=== PATIENT | male | born 1955 | race Caucasian/White ===

== ENCOUNTER → 2018-02-23 | Outpatient (CLI) | payer BC ==
--- NOTE | 2018-02-23 12:15 | US ---
EXAMINATION TYPE: US carotid duplex BILAT DATE OF EXAM: 02/23/2018 COMPARISON: NONE CLINICAL HISTORY: 63-year-old male I20.9 angina Dyspnea R06.09. Dizziness TECHNIQUE: Carotid duplex ultrasound examination. Indirect Doppler criteria was utilized. 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 No elevated velocities, no significant stenosis. IMPRESSION: Technical limitations as above. No hemodynamically significant stenosis appreciated in either interna l carotid artery. Criteria for Assigning % of Stenosis / Diameter reduction (Estimation based on the indirect measurements of the internal carotid artery velocities (ICA PSV). 1. Normal (no stenosis)=ICA PSV < 125 cm/s: ratio < 2.0: ICA EDV<40 cm/s. 2. Less than 50% stenosis=ICA PSV < 125 cm/s: ratio < 2.0: ICA EDV<40 cm/s. 3. 50 to 69% stenosis=ICA PSV of 125 to 230 cm/s: ration 2.0 ? 4.0: ICA EDV 40-100 cm/s. 4. Greater than 70% stenosis to near occlusion= ICA PSV > 230 cm/s: ratio > 4.0: ICA EDV > 100 cm/s. 5. Near occlusion= ICA PSV velocities may be low or undetectable: variable ratio and ICA EDV. 6. Total occlusion=unable to detect flow.
--- NOTE | 2018-02-23 12:44 | ECHOF ---
Referral Reason:I20.9 angina R06.09 dyspnea on exertion MEASUREMENTS -------- HEIGHT: 172.7 cm WEIGHT: 108.9 kg BP: RVIDd: 2.8 cm (< 3.3) IVSd: 1.2 cm (0.6 - 1.1) LVIDd: 4.4 cm (3.9 - 5.3) LVPWd: 1.4 cm (0.6 - 1.1) IVSs: 1.6 cm LVIDs: 2.5 cm LVPWs: 1.5 cm LA Diam: 3.5 cm (2.7 - 3.8) LAESV Index (A-L): 17.21 ml/m Ao Diam: 3.5 cm (2.0 - 3.7) AV Cusp: 2.1 cm (1.5 - 2.6) LA Diam: 3.5 cm (2.7 - 3.8) MV EXCURSION: 15.965 mm (> 18.000) MV EF SLOPE: 78 mm/s (70 - 150) EPSS: 0.6 cm MV E Min: 0.46 m/s MV DecT: 199 ms MV A Min: 0.69 m/s MV E/A Ratio: 0.66 RAP: 5.00 mmHg RVSP: 13.59 mmHg FINDINGS -------- Sinus rhythm. This was a technically adequate study. The left ventricular size is normal. There is moderate concentric left ventricular hypertrophy. O verall left ventricular systolic function is normal with, an EF between 55 - 60 %. The right ventricle is normal in size. The left atrial size is normal. The right atrial size is normal. The aortic valve is trileaflet, and appears structurally normal. No aortic stenosis or regurgitation. Mild mitral annular calcification present. Mild mitral regurgitation is present. Mild tricuspid regurgitation present. There is no evidence of pulmonary hypertension. The right v entricular systolic pressure, as measured by Doppler, is 13.59mmHg. There is no pulmonic regurgitation present. The aortic root size is normal. Echo free space represents a pericardial fat pad. CONCLUSIONS -------- 1. The left ventricular size is normal. 2. There is moderate concentric left ventricular hypertrophy. 3. Overall left ventricular systolic function is normal with, an EF between 55 - 60 %. 4. The right ventricle is normal in size. 5. The left atrial size is normal. 6. The right atrial size is normal. 7. The aortic valve is trileaflet, and appears structurally normal. No aortic stenosis or regurgitati on. 8. Mild mitral annular calcification present. 9. Mild mitral regurgitation is present. 10. Mild tricuspid regurgitation present. 11. There is no evidence of pulmonary hypertension. 12. The right ventricular systolic pressure, as measured by Doppler, is 13.59mmHg. 13. There is no pulmonic regurgitation present. 14. The aortic root size is normal. 15. Echo free space represents a pericardial fat pad. TECHNOLOGY SALES SPECIALIST: Kathy Preciado RDCS
--- NOTE | 2018-02-23 14:09 | EST ---
EXERCISE STRESS DATE OF SERVICE: 02/23/2018 AGE: 63 SEX: M HT: 5' 8" WT: 240 PROTOCOL: Roderick Stress Test STAGE: II DURATION OF EXERCISE: 8:00 HEART RATE REST: 46 BLOOD PRESSURE REST: 128/68 MAXIMUM HEART RATE ACHIEVED: 134 MAXIMUM BLOOD PRESSURE: 164/55 85% MPHR: 133 100% MPHR: 156 METS: 9.7 INDICATIONS: Shortness of breath/dizzy. CLINICAL INFORMATION: STRESS DATA: Pretesting physical examination showed heart rate of 46, pressure is 128/68 mmHg. Baseline EKG showed sinus rhythm. The patient exercised on the treadmill according to Roderick protocol for a total of 8 minutes and achieved 9.7 METS with max heart rate was 134, which is about 85% of maximum predicted heart rate. Maximum blood pressure was 164/55 mmHg. Clinically, the patient did not have any symptoms of chest pain or discomfort during the testing or on the recovery. The EKG did not show any significant ST or T-wave abnormalities concerning for ischemia. CONCLUSION: 1. Good exercise tolerance. 2. No chest discomfort in response. No evidence of chest discomfort in response to exercise. 3. No ischemic ST or T-wave abnormalities in response to exercise as well. MMODL / IJN: [id number] /
== END | disposition home or self-care (01) ==
LOC: RADUSMAIN 07:48
PROVIDERS: ATTEND Family Medicine
DX: I08.1 Rheumatic disorders of both mitral and tricuspid valves (principal); I20.9 Angina pectoris, unspecified
CPT/HCPCS: 93017; 93306; 93880

== ENCOUNTER → 2019-09-08 | Outpatient (CLI) | payer MEDICARE ==
[2019-09-08 09:52] LABS: Basophils % (A) 0 %; Eosinophils # (A) 0.2 k/uL (0-0.7); Eosinophils % (A) 4 %; HCT 47.3 % (39.0-53.0); Lymphocytes # (A) 1.2 k/uL (1.0-4.8); Lymphocytes % (A) 20 %; MCH 32.7 pg (25.0-35.0); MCHC 33.8 g/dL (31.0-37.0); MCV 96.5 fL (80.0-100.0); Mean Platelet Volume 8.8; Monocytes # (A) 0.6 k/uL (0-1.0); Monocytes % (A) 10 %; Neutrophils # (A) 3.7 k/uL (1.3-7.7); Neutrophils % (A) 63 %; Platelet Count 180 k/uL (150-450); RDW 13.7 % (11.5-15.5); WBC 5.8 k/uL (3.8-10.6)
[2019-09-08 10:07] LABS: Potassium 4.4 mmol/L (3.5-5.1)
== END | disposition home or self-care (01) ==
LOC: LABPAT 08:13
PROVIDERS: ATTEND Surgery
DX: Z01.818 Encounter for other preprocedural examination (principal); M75.41 Impingement syndrome of right shoulder
CPT/HCPCS: 80051; 85025; 93005; 36415; U0003

== ENCOUNTER → 2019-09-10 | Day surgery (SDC) | payer MEDICARE, OTHER ==
[2019-09-09 08:59] VITALS: BMI 34.9
[~2019-09-10] MED LIST: LACTATED RINGERS 1,000 ML IV SCH; PROPOFOL 10 MG/ML 20 ML VIAL IV ONE
[2019-09-10 10:44] VITALS: RESP 16; TEMP 97
--- NOTE | 2019-09-10 11:17 | P.GSHP ---
History of Present Illness H&P Date: 09/10/19 Chief Complaint: GI bleed, screening colonoscopy Is a 64-year-old male. Kristian. Patient rents today for EGD colonoscopy. Patient apparently was stool tested guaiac-positive. He is also due for screening colonoscopy. His last colonoscopy approximately 10 years ago. Past Medical History Past Medical History: Osteoarthritis (OA) Additional Past Medical History / Comment(s): had frequent diarhea and stomach aches, states takes "water pill for dizzyness" History of Any Multi-Drug Resistant Organisms: None Reported Past Surgical History: Orthopedic Surgery Additional Past Surgical History / Comment(s): rt knee scope, colonoscopy Past Anesthesia/Blood Transfusion Reactions: No Reported Reaction Smoking Status: Never smoker - Past Family History Mother Family Medical History: No Reported History Medications and Allergies Home Medications Medication Instructions Recorded Confirmed Type Triamterene-Hctz 37.5-25Mg 1 cap PO DAILY 09/09/19 09/09/19 History [Dyazide 37.5-25 Capsule] Allergies Allergy/AdvReac Type Severity Reaction Status Date / Time No Known Allergies Allergy Verified 09/10/19 10:35 Surgical - Exam Vital Signs Temp Pulse Resp BP Pulse Ox 97.0 F L 56 L 16 128/75 98 09/10/19 10:42 09/10/19 10:42 09/10/19 10:42 09/10/19 10:42 09/10/19 10:42 - General well developed, well nourished, no distress - Eyes PERRL - ENT normal pinna - Neck no masses - Respiratory normal expansion - Cardiovascular Rhythm: regular - Abdomen Abdomen: soft, non tender Assessment and Plan Assessment: GI bleed, screening colonoscopy. We'll perform EGD and screening colonoscopy
--- NOTE | 2019-09-10 11:35 | P.OP ---
Date of Procedure: 09/10/19 Preoperative Diagnosis: Screening colonoscopy GI bleed Postoperative Diagnosis: Antral gastritis Hepatic flexure polyp Mild diverticulosis Procedure(s) Performed: EGD Colonoscopy Anesthesia: MAC Surgeon: Kane Thompson Pathology: other (Flexure polyp, antrum) Condition: stable Disposition: PACU Description of Procedure: The patient's placed on the endoscopy table in the lateral position. He received IV sedation. The gastroscope was oropharynx passed in the esophagus and into the stomach. Scope was then placed through the pylorus. The first and second portion of the duodenum appeared normal. Scope was then brought back the antrum this might inflamed. A biopsies performed. The scope was unretroflexed and remainder of the stomach appeared normal. The GE junction was at 40 cm. The distal esophagus appeared normal. The proximal esophagus. Normal. Scope was withdrawn for patient. Next digital rectal exam was performed which revealed no abnormalities. Scope was then placed patient anus passed throughout the entire colon. The ileocecal valve was visualized. Cecum, ascending colon appeared normal. The transverse colon at the hepatic flexure there was a small polyp seen was removed the cold forcep. The scope was brought back and remainder of the transverse colon appeared normal. In the descending; was mild diverticular changes. Scope was brought back the rectum and this appeared normal. Scope withdrawn for patient.
[2019-09-10 12:18] VITALS: BP 127/68; PULSE 68
== END | disposition home or self-care (01) ==
LOC: ORWHC2ENDO 10:17
PROVIDERS: ATTEND Surgery
DX: K29.50 Unspecified chronic gastritis without bleeding (principal); D12.3 Benign neoplasm of transverse colon; K57.30 Diverticulosis of large intestine without perforation or abscess without bleeding; K92.2 Gastrointestinal hemorrhage, unspecified; Z98.890 Other specified postprocedural states; M19.90 Unspecified osteoarthritis, unspecified site; Z79.899 Other long term (current) drug therapy
CPT/HCPCS: 88305; 45380; 43239; J2704

== ENCOUNTER → 2019-09-16 | Day surgery (SDC) | payer MEDICARE ==
[2019-09-14 15:56] VITALS: BMI 34.8
--- NOTE | 2019-09-15 14:11 | HP ---
HISTORY AND PHYSICAL DATE OF SURGERY: 09/16/2019. Viral Mckeon is a 64-year-old patient seen with progressive right shoulder pain. We discussed options for treatment. He elected to proceed with arthroscopy. Consent was obtained. PAST MEDICAL HISTORY: Hypertension. PAST SURGICAL HISTORY: Knee surgery. DAILY MEDICATIONS: Triamterene. ALLERGIES: None. SOCIAL HISTORY: Denies current tobacco use. PHYSICAL EVALUATION OF THE RIGHT SHOULDER: Flexion 100 degrees, abduction 60 degrees, external rotation 20 degrees with weakness, tenderness along the anterior lateral acromion rotator cuff insertion site. Impingement is positive AT 70 degrees. Drop-arm sign is positive. Distal neurovascular exam is intact. RADIOGRAPHS OF THE RIGHT SHOULDER: Revealed a type 2 anterior acromion, acromioclavicular joint osteoarthritis and cystic changes of the greater tuberosity. A MRI of the right shoulder revealed a rotator cuff tendon tear, labral tear, acromioclavicular joint osteoarthritis. IMPRESSION: Right shoulder impingement with rotator cuff tear, acromioclavicular joint osteoarthritis and labral tear. PLAN: Right shoulder arthroscopy with subacromial decompression, arthroscopic rotator cuff repair, arthroscopic Erickson procedure and debridement. MMODL / IJN: [id number] /
[~2019-09-16] MED LIST changes: +DEXAMETHASONE SOD PHOSPHATE 10 MG/ML 1 ML VIAL IV ONE; +DEXAMETHASONE SOD PHOSPHATE 10 MG/ML 1 ML VIAL ONE; +GLYCOPYRROLATE 0.2 MG/ML 2 ML VIAL ONE; +HYDROmorphone 0.5 MG/0.5 ML SYRINGE IVP PRN; +LIDOCAINE 1% INJ 10MG/ML (20 ML MDV) ONE; +MIDAZOLAM 2 MG/2 ML VIAL IV ONE; +MIDAZOLAM 2 MG/2 ML VIAL IV PRN; +MIDAZOLAM 2 MG/2 ML VIAL ONE; +NEOSTIGMINE 1 MG/ML 10 ML VIAL ONE; +ROCURONIUM BROMIDE 10 MG/ML 5 ML VIAL IV ONE; +ROPIVACAINE 5 MG/ML 30 ML VIAL ONE; +SUCCINYLCHOLINE CHLORIDE 100 MG/5 ML SYR IV ONE
[2019-09-16] MEDS: ONDANSETRON 4 MG/2 ML VIAL IVP ONE ×2 (06:43→10:38)
[2019-09-16 09:31] VITALS: TEMP 96.8
[2019-09-16 09:46] VITALS: RESP 16
--- NOTE | 2019-09-16 09:57 | P.OP ---
Date of Procedure: 09/16/19 Preoperative Diagnosis: Right shoulder impingement Postoperative Diagnosis: 1. Right shoulder rotator cuff tear 2. Right shoulder impingement 3. Right shoulder acromioclavicular joint osteoarthritis 4. Right shoulder partial long head biceps tendon tear Procedure(s) Performed: 1. Right shoulder arthroscopic rotator cuff repair 2. Right shoulder arthroscopic subacromial decompression 3. Right shoulder arthroscopic Erickson procedure 4. 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 After treatment options were discussed, he elected to proceed with arthroscopy. Operative Findings: see description of procedure Description of Procedure: Patient underwent an interscalene block by department of anesthesia. The patient was then taken to the operative suite. The patient underwent a general anesthetic by the department of anesthesia. The patient was placed into a lateral position and secured. There was appropriate padding of the bony prominence. Right shoulder was then prepped and draped in normal sterile orthopedic fashion. We placed the extremity in 10 pounds of longitudinal traction. A posterior incision was now made for a posterior working portal site. The trocar and cannula were inserted into the glenohumeral joint. Arthroscopy was initiated. Spinal needle was now inserted anteriorly, to ascertain the anterior working portal site. An incision was now made in that area, a trocar was inserted followed by a probe. There was partial tearing long head biceps tendon with hyperemia. There was no chondromalacia present. The labrum was stable. I performed arthroscopic biceps tenotomy. Residual labrum was probed and found to be stable. Instruments now removed from glenohumeral joint. Utilizing the posterior working portal site, the trocar and cannula were inserted into the subacromial space. Arthroscopy initiated. I made an incision 2 fingerbreadths lateral to the acromion. I introduced my trocar followed by my ArthroCare ablator. I now began ablating thick subacromial bursal tissue, which exposed the undersurface of the anterior acromion. There was diminished subacromial space. There was a very prominent anterior acromion. A motorized bur was introduced and a subacromial decompression was performed. I also excised some osteophytes off the inferior aspect of the distal clavicle. The AC joint was visualized and noted to be fairly arthritic. The motorized bur was introduced in the anterior portal site and a Erickson procedure was performed without difficulty, decompressing the AC joint nicely. I turned my attention to the rotator cuff. There was a 2 cm rotator cuff tear. I debrided the margins getting down to stable tendon tissue. I introduced my motorized bur and abraded the footprint area, getting some petechial bleeding. I now made an accessory portal site off the lateral aspect of the acromion. I punched 2 holes medial for medial row fixation with the assistance of Grayson JOYNER carefully tapping the punch with a mallet as I held the punch and the camera. I now introduced both anchors into the pre-punched holes and Grayson JOYNER tapped them with the mallet as I held anchors and the camera. Grayson JOYNER now screwed the anchors in place a while I held the anchor guide and camera. All 8 limbs of suture were now passed through good bites of rotator cuff tendon. I now punched 2 holes for lateral row fixation again I held the punch and camera while Grayson JOYNER used a mallet to tap in the punch. We now passed sutures through both anchors and individually I introduced the anchors into the pre-punch holes I held the anchor guide in position with one hand holding the camera with the other hand while Grayson JOYNER tensioned the sutures and screwed in the anchors one at a time. All residual suture limbs were now clipped. We had good compression of the tendon along the entire footprint. I injected 1 mL Renyte intra-articular. Instruments now removed from the portal sites. All portal sites were approximated with nylon suture. Sterile dressings were applied followed by a shoulder immobilizer. Timmy JOYNER assisted in this complex case. The patient was awakened, transferred to a bed, and taken to recovery in stable condition.
[2019-09-16 11:19] VITALS: BP 132/82; PULSE 48
--- NOTE | 2019-09-16 13:11 | P.ANPRN ---
Procedure Note - Anesthesia - Nerve Block Performed Right Interscalene Single Time Out Performed: Yes Date of Procedure: 09/16/19 Procedure Start Time: 06:51 Procedure Stop Time: 06:54 Location of Patient: PreOp Indication: Acute Post-Operative Pain, Requested by Surgeon Sedation Type: Sedate with meaningful contact maintained Preparation: Sterile Prep Position: Supine Needle Types: Pajunk Needle Gauge: 21 Ultrasound used to visualize needle placement: Yes Ultrasound used to observe medication spread: Yes Blood Aspirated: No Pain Paresthesia on Injection Noted: No Resistance on Injection: Normal Image Stored and Saved: Yes Events: Uneventful and Well Tolerated
== END | disposition home or self-care (01) ==
LOC: OR 06:05
PROVIDERS: ATTEND Orthopaedic Surgery
DX: M75.101 Unspecified rotator cuff tear or rupture of right shoulder, not specified as traumatic (principal); M19.011 Primary osteoarthritis, right shoulder; M75.41 Impingement syndrome of right shoulder; S46.111A Strain of muscle, fascia and tendon of long head of biceps, right arm, initial encounter; M25.811 Other specified joint disorders, right shoulder; I10 Essential (primary) hypertension; E66.9 Obesity, unspecified; Z98.890 Other specified postprocedural states; Z79.899 Other long term (current) drug therapy; Z68.35 Body mass index [BMI] 35.0-35.9, adult
CPT/HCPCS: 64415; 76942; 29824; 29827; 29826; C1713 ×3; Q4212; J2250; J1100; J2710; J0690; J2405; J2001; J2795; J0330; J2704

== ENCOUNTER 2020-03-06 08:11 | Day surgery (SDC) | payer MEDICARE ==
[2020-02-29 10:28] VITALS: BMI 35.4
--- NOTE | 2020-03-05 10:52 | HP ---
HISTORY AND PHYSICAL REASON FOR ADMISSION: Surgery is 03/06/2020. HISTORY OF PRESENT ILLNESS: Viral Mckeon is a 65-year-old patient seen with right shoulder adhesive capsulitis. We discussed options for treatment. He elected to proceed with manipulation under anesthesia, right shoulder steroid injection. Consent was obtained. PAST MEDICAL HISTORY: Hypertension. SURGICAL HISTORY: Right shoulder arthroscopy, knee arthroscopy. MEDICATIONS: Triamterene. ALLERGIES: None. SOCIAL HISTORY: Denies tobacco use. PHYSICAL EVALUATION OF THE RIGHT SHOULDER: Flexion 130, abduction 120, external rotation 20 with reasonable strength. Distal neurovascular exam is intact. RADIOGRAPHS: Radiographs of the right shoulder revealed a conversion to a flat anterior acromion, evidence for previous AC joint arthroplasty/resection. IMPRESSION: 1. Right shoulder adhesive capsulitis. 2. History of right shoulder arthroscopic rotator cuff repair. PLAN: Manipulation under anesthesia right shoulder with steroid injection. Surgery 03/06/2020. MMODL / IJN: [id number] /
[~2020-03-06 08:11] MED LIST changes: -DEXAMETHASONE SOD PHOSPHATE 10 MG/ML 1 ML VIAL IV ONE; -DEXAMETHASONE SOD PHOSPHATE 10 MG/ML 1 ML VIAL ONE; +DEXAMETHASONE SOD PHOSPHATE 4 MG/ML 1 ML VIAL IV ONE; -GLYCOPYRROLATE 0.2 MG/ML 2 ML VIAL ONE; -HYDROmorphone 0.5 MG/0.5 ML SYRINGE IVP PRN; -LIDOCAINE 1% INJ 10MG/ML (20 ML MDV) ONE; -MIDAZOLAM 2 MG/2 ML VIAL IV ONE; -MIDAZOLAM 2 MG/2 ML VIAL IV PRN; -MIDAZOLAM 2 MG/2 ML VIAL ONE; -NEOSTIGMINE 1 MG/ML 10 ML VIAL ONE; +ONDANSETRON 4 MG/2 ML VIAL IVP ONE; -PROPOFOL 10 MG/ML 20 ML VIAL IV ONE; -ROCURONIUM BROMIDE 10 MG/ML 5 ML VIAL IV ONE; -ROPIVACAINE 5 MG/ML 30 ML VIAL ONE; -SUCCINYLCHOLINE CHLORIDE 100 MG/5 ML SYR IV ONE
[2020-03-06] MEDS ORDERED: LIDOCAINE 1% (10MG/ML) FOR IV START INTRADERMA ONE (08:44)
[2020-03-06] MEDS ORDERED: PROPOFOL 10 MG/ML 20 ML VIAL IV ONE (09:25)
[2020-03-06] MEDS ORDERED: fentaNYL (PF) 50 MCG/ML 2 ML AMP ONE (09:25)
[2020-03-06] MEDS ORDERED: KETOROLAC 15 MG/ML 1 ML VIAL ONE (09:25)
[2020-03-06] MEDS ORDERED: MIDAZOLAM 2 MG/2 ML VIAL ONE (09:25)
--- NOTE | 2020-03-06 09:38 | P.OP ---
Date of Procedure: 03/06/20 Preoperative Diagnosis: Right shoulder adhesive capsulitis Postoperative Diagnosis: Right shoulder adhesive capsulitis Procedure(s) Performed: Manipulation under anesthesia right shoulder with steroid injection Anesthesia: JESSICA local Surgeon: Barron Merino Estimated Blood Loss (ml): 0 Pathology: none sent Condition: stable Disposition: PACU Indications for Procedure: 65-year-old patient seen with persistent right shoulder adhesive capsulitis. After treatment options were discussed, he elected to proceed with manipulation under anesthesia with steroid injection Operative Findings: See description of procedure Description of Procedure: Patient was taken to a monitored anesthesia. The patient underwent IV sedation by the department of anesthesia. When sufficient anesthesia was noted I performed a manipulation of the shoulder achieving near full range of motion with audible tearing of the adhesions. The anterior aspect of her shoulder was prepped and draped in normal sterile orthopedic fashion. A solution of 1 mL Depo-Medrol and 2 mL quarter percent plain Marcaine were injected into the glenohumeral joint. I took the shoulder through range of motion. I applied a sterile Band-Aid. The patient was awakened having tolerated procedure well.
[2020-03-06] MEDS: HYDROmorphone 0.5 MG/0.5 ML SYRINGE IVP PRN ×3 (09:41→09:54)
[2020-03-06 09:50] VITALS: TEMP 97.1
[2020-03-06 10:33] VITALS: BP 119/76; PULSE 70; RESP 18
== END 2020-03-06 10:46 | disposition home or self-care (01) ==
LOC: OR 08:11
PROVIDERS: ATTEND Orthopaedic Surgery
DX: M75.01 Adhesive capsulitis of right shoulder (principal); M19.90 Unspecified osteoarthritis, unspecified site; I10 Essential (primary) hypertension; E66.9 Obesity, unspecified; Z68.36 Body mass index [BMI] 36.0-36.9, adult; Z79.899 Other long term (current) drug therapy
CPT/HCPCS: 23700; J2250; J1100; J2405; J3010; J1885; J2704; J1170

== ENCOUNTER → 2020-04-10 | Outpatient (CLI) | payer MEDICARE ==
[2020-04-10 15:17] LABS: Basophils # (A) 0.1 k/uL (0-0.2); Basophils % (A) 1 %; Eosinophils # (A) 0.1 k/uL (0-0.7); Eosinophils % (A) 2 %; HCT 44.5 % (39.0-53.0); HGB 15.7 gm/dL (13.0-17.5); Lymphocytes # (A) 1.4 k/uL (1.0-4.8); Lymphocytes % (A) 19 %; MCH 32.5 pg (25.0-35.0); MCHC 35.2 g/dL (31.0-37.0); MCV 92.5 fL (80.0-100.0); Mean Platelet Volume 7.8; Monocytes # (A) 0.6 k/uL (0-1.0); Monocytes % (A) 8 %; Neutrophils % (A) 69 %; Platelet Count 171 k/uL (150-450); RBC 4.81 m/uL (4.30-5.90); WBC 7.3 k/uL (3.8-10.6)
[2020-04-10 15:27] LABS: Potassium 4.3 mmol/L (3.5-5.1)
== END | disposition home or self-care (01) ==
LOC: LABPAT 14:32
PROVIDERS: ATTEND Orthopaedic Surgery
DX: M23.91 Unspecified internal derangement of right knee (principal)
CPT/HCPCS: 80051; 85025

== ENCOUNTER 2020-04-13 10:27 | Day surgery (SDC) | payer MEDICARE ==
[2020-04-06 10:49] VITALS: BMI 35.4
--- NOTE | 2020-04-12 14:26 | HP ---
HISTORY AND PHYSICAL Surgery is scheduled for 04/13/2020. Viral Mckeon is a 65-year-old gentleman seen with progressive right knee pain. We discussed options for treatment. He elected to proceed with arthroscopy. Consent was obtained. PAST MEDICAL HISTORY: Asthma. PAST SURGICAL HISTORY: Knee arthroscopy, shoulder arthroscopy. DAILY MEDICATIONS: Triamterene. ALLERGIES: None. SOCIAL HISTORY: He denies current tobacco use. PHYSICAL EXAMINATION: Physical evaluation of the right knee: His range of motion is 0-130. He has some tenderness along the medial joint line. Positive medial Yoselyn's. Ligaments are stable. Patellar medial crepitus with range of motion. Some pain with patellofemoral compression. Distal neurovascular exam intact. Radiographs of the right knee revealed mild osteoarthritic changes. MRI of the right knee revealed medial meniscal tear and osteoarthritic changes. IMPRESSION: 1. Internal derangement, right knee with medial meniscal tear. 2. Asthma. PLAN: Right knee arthroscopy with partial meniscectomy, partial synovectomy and debridement. MMODL / IJN: [id number] /
[~2020-04-13 10:27] MED LIST changes: -DEXAMETHASONE SOD PHOSPHATE 4 MG/ML 1 ML VIAL IV ONE; +HYDROmorphone 0.5 MG/0.5 ML SYRINGE IVP PRN; +fentaNYL (PF) 50 MCG/ML 2 ML AMP IV PRN
[2020-04-13 10:40] VITALS: RESP 16
[2020-04-13] MEDS ORDERED: ONDANSETRON 4 MG/2 ML VIAL ONE (10:51)
[2020-04-13] MEDS ORDERED: MIDAZOLAM 2 MG/2 ML VIAL IVP ONE (10:53)
[2020-04-13] MEDS ORDERED: PROPOFOL 10 MG/ML 20 ML VIAL IV ONE (12:17)
[2020-04-13] MEDS ORDERED: SUCCINYLCHOLINE CHLORIDE 100 MG/5 ML SYR IV ONE (12:17)
[2020-04-13] MEDS ORDERED: MIDAZOLAM 2 MG/2 ML VIAL ONE (12:17)
[2020-04-13] MEDS ORDERED: fentaNYL (PF) 50 MCG/ML 2 ML AMP ONE (12:17)
[2020-04-13] MEDS ORDERED: KETOROLAC 15 MG/ML 1 ML VIAL ONE (12:17)
[2020-04-13] MEDS ORDERED: BUPIVACAINE (PF) 0.25% 30 ML VIAL INTRAARTIC ONE (12:17)
[2020-04-13] MEDS ORDERED: LIDOCAINE 1% INJ 10MG/ML (20 ML MDV) ONE (12:17)
[2020-04-13] MEDS ORDERED: LACTATED RINGERS 1,000 ML IV ONE (12:47)
--- NOTE | 2020-04-13 13:02 | P.OP ---
Date of Procedure: 04/13/20 Preoperative Diagnosis: Internal derangement right knee Postoperative Diagnosis: 1. Tear medial meniscus right knee 2. 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 Grade 2 chondromalacia medial femoral condyle right knee 4. Reactive synovitis medial, lateral and suprapatellar compartments right knee Procedure(s) Performed: 1. Arthroscopic partial medial meniscectomy right knee 2. Arthroscopic chondroplasty patellofemoral joint right knee 3. Arthroscopic chondroplasty medial femoral condyle right knee 4. Arthroscopic partial synovectomy medial, lateral and suprapatellar compartments right knee Anesthesia: JESSICA, regional Surgeon: Barron Merino Estimated Blood Loss (ml): 5 Pathology: none sent Condition: stable Disposition: PACU Indications for Procedure: 65-year-old patient seen with progressive right knee pain. After treatment options were discussed, he elected to proceed with arthroscopy. Operative Findings: See description of procedure Description of Procedure: Patient was taken to the operative suite. Patient underwent a general anesthetic by the department of anesthesia. Patient was given preoperative antibiotics. The right lower extremity was placed in a well-padded arthroscopic leg edwards. The right leg was prepped and draped in the normal sterile orthopedic fashion. A lateral parapatellar and suprapatellar incision was made. Trochars were inserted. Arthroscopy was initiated. Suprapatellar pouch revealed diffuse thick reactive synovitis. The patellofemoral joint appeared to articulate congruently. There was grade 3/4 chondromalacia of the patellofemoral joint with some diffuse osteochondral tears present.. The scope was guided into the medial gutter. No loose bodies or plica were identified. The scope was then guided into the medial compartment. A medial parapatellar incision was made. Trocar inserted followed by probe. There was a complex tear posterior horn medial meniscus. There were grade 2 chondral changes of medial femoral condyle with some osteochondral flap tears present. There was thick reactive synovitis anteriorly. I performed a partial medial meniscectomy getting down to stable meniscal tissue. I performed a chondroplasty of the medial femoral condyle getting down to stable osteochondral tissue. I performed a partial synovectomy decompressing the reactive synovitis. The residual meniscus was stable. The residual osteochondral surface of the medial femoral condyle was stable. There was good decompression of the synovitis. Scope and probe were then guided into the intercondylar notch. Cruciates were identified, probed and found to be stable. The scope and probe were then guided into lateral compartment. Lateral meniscus was probed and found to be stable. There was no significant chondromalacia present. There was some thick reactive synovitis anteriorly. I performed a partial synovectomy. The shaver was removed. There was good decompression of the synovitis. The scope was in guided back into the suprapatellar compartment. I introduced a motorized shaver into the super patellar compartment. I debrided some piecemeal fragments of meniscus I encountered. I performed a chondroplasty of the patellofemoral joint getting down to stable osteochondral tissue. I performed a partial synovectomy decompressing the reactive synovitis. The shaver was removed. There was good decompression of the synovitis. The residual osteochondral surface of the patellofemoral joint appeared stable again noting grade 3 and 4 chondromalacia changes there. I took one more look on the entire knee, no residual debris. Instruments were now removed from the joint. The joint was infiltrated with .25% Marcaine. Steri-Strips were applied to the portal sites. Sterile dressings were applied. The patient was placed into a DENITA hose. No tourniquet was utilized. The patient was awakened, transferred to a bed and taken to recovery stable satisfactory condition.
[2020-04-13 13:07] VITALS: TEMP 96.9
[2020-04-13 14:11] VITALS: BP 135/79; PULSE 52
== END 2020-04-13 14:38 | disposition home or self-care (01) ==
LOC: OR 10:27
PROVIDERS: ATTEND Orthopaedic Surgery
DX: M23.221 Derangement of posterior horn of medial meniscus due to old tear or injury, right knee (principal); M65.861 Other synovitis and tenosynovitis, right lower leg; M94.261 Chondromalacia, right knee; I10 Essential (primary) hypertension; J45.909 Unspecified asthma, uncomplicated; Z79.899 Other long term (current) drug therapy; Z98.890 Other specified postprocedural states
CPT/HCPCS: 29881; J2250; J0690; J2405; J2001; J3010; J1885; J0330; J2704

== ENCOUNTER → 2020-08-31 | Outpatient (CLI) | payer MEDICARE ==
--- NOTE | 2020-08-31 12:51 | XR ---
EXAMINATION TYPE: XR lumbar spine 2 or 3V, XR thoracic spine complete DATE OF EXAM: 08/31/2020 COMPARISON: None HISTORY: Lower back pain from playing golf TECHNIQUE: AP lateral and coned-down lateral views of the lumbar spine were obtained. AP, lateral and swimmer's view of the thoracic spine were obtained. FINDINGS: Lumbar spine: There are 5 nonrib-bearing lumbar-type vertebral bodies. There are bridging osteophytes at L1-2 and L2-3 on the left. Most likely anterior osteophytes are seen throughout the lumbar spine. There is no loss of vertebral body height. There is maintenance of the normal lumbar lordosis. There is multilevel narrowing of the intervertebral disc spaces including L1-2, L2-3 L4-5 and L5-S1. No si gnificant spondylolisthesis. Facets show mild degenerative changes. Atherosclerotic calcification of the abdominal aorta. Thoracic spine: 12 thoracic rib-bearing vertebral bodies are seen. Multilevel bridging osteophytes of the right lateral thoracic vertebral bodies. Minimal dextrocurvature of the thoracic spine centered at C6-7. Paravertebral soft tissues are unremarkable. There is maintenance of the normal thoracic kyp hosis. No spondylolisthesis. No definite evidence of loss of vertebral body height. IMPRESSION: 1. No loss of vertebral body height of the lumbar thoracic vertebral bodies to suggest acute compress ion fracture. Multilevel degenerative changes of lumbar spine as described above.
== END | disposition home or self-care (01) ==
LOC: RADXRMAIN 11:54
PROVIDERS: ATTEND Family Medicine
DX: M47.816 Spondylosis without myelopathy or radiculopathy, lumbar region (principal); M51.37 Other intervertebral disc degeneration, lumbosacral region; M25.78 Osteophyte, vertebrae
CPT/HCPCS: 72072; 72100

== ENCOUNTER → 2022-10-09 | Outpatient (CLI) | payer MEDICARE ==
[2022-10-09 13:53] VITALS: BP 136/85; PULSE 61; RESP 18; TEMP 98.3
--- NOTE | 2022-10-09 15:30 | P.PAINPG ---
PQRS Measure Charge Sheet Comment: HISTORY OF PRESENT ILLNESS: 67 yr old male w at side as a referral from [facility] presents today w severe and chronic LBP secondary to DDD, spondylosis and facet arthropathy without myelopathy for evaluation. Pt states pain level is provoked at 10/10 in intensity, constant, localized in the R mid back, sharp in character w/o shooting pain. Pain is provoked by over activity. Pain is alleviated by PT x 4 wks in Mar 2022, physician guided home exercises daily since Mar 2022, massage therapy in 2020, acupuncture treatments on & off, chiropractic treatments semi weekly for years, heat, ice, medications (Robaxin, Mobic, Advil), topical, repositioning and rest. Oswestry pain score at 14. PMH: OA, HTN PSH: R shoulder x2 (2019), R knee Arthroscopy (2020), Colonoscopy (2018) SH: Negative x3 FH: Non contributory All: See list Meds: See list REVIEW OF ORGAN SYSTEMS: CONSTITUTIONAL: No fevers or chills. No recent weight loss. NEUROLOGICAL: + numbness and tingling along the distal extremities. No seizure disorders or headaches. MUSCULOSKELETAL: + pain PSYCHIATRIC: Denies current depression or suicidal thoughts. Physical Examinations : Constitutional : Cooperative , not in acute distress . Neurologic : Cranial nerve II to XII intact. No focal neurological deficits. Psychiatric : alert & oriented x 3. Matching mood & appropriate affect. Judgment & insight intact. Musculoskeletal : Cervical Spine Motor strength in the deltoid and biceps: Normal right side. Normal Left side Motor strength biceps and the wrist extensors: Normal right side . Normal left side Motor strength in the triceps muscle: Normal right side. Normal left side Deep tendon reflexes: Normal at the biceps. Normal at Brachioradialis. Normal at triceps Vertebral body tenderness to deep palpation over Cervical facet loading test: positive bilaterally Spurling test: positive bilaterally Neck distraction test: positive bilaterally Salvador sign: positive bilaterally Lumbar spine Motor strength lower extremities ,thigh and legs 5/5 Right side , 5/5 Left side Deep tendon reflexes : Normal Knee Jerk. Normal Ankle Jerk Vertebral body tenderness over Elizabeth Test positive Taut bands w twitch response over R T10 - L4 Lumbar facet Loading Test: positive Right / positive Left Range of motion of the lumbar spine Flexion 30 degrees, extension 10 degrees Straight Leg Raise test: Left/ Right p ositive at degree Jovanny test: positive right / positive left. Severe tenderness over the Sacroiliac joint on the Right / Left sides Gaenslen test: positive bilaterally Seated flexion test: positive bilaterally. Sacral spine : Severe tenderness over the Sacroiliac joint: right side / left side Range of motion: Flexion of the lumbar spine <60 degrees Range of motion: Extension of the lumbar spine <20 degrees Gaenslen's Test positive Herbie's Test positive Jovanny test: positive right side / left side Thigh Thrust Test Sacral Thrust Test Imaging: MRI noncontrast of the lumbar spine from 04/30/22 reviewed Assessment/ Plan : Lumbar DDD Recommendation of R T1- L4. May need a series of injections for optimal pain relief. Risks, benefits of procedure discussed and patient verbalized understanding. Admits to aspirin or anti- coagulant use or medical history of diabetes. Protocol for discontinuation/ continuation of medications kimberly procedure discussed. Minimal anesthesia provided, if clinically indicated, consisting of Versed and Fentanyl. All questions answered. I have spent greater than 30 minutes on patient care today. Dr Cabrera was available by phone for the evaluation of this patient. The time was used to review the medical records including relevant urine studies and Prescription history (MAPs), review of the available imaging, evaluation and examination of the patient, coordination of care with the medical staff and if applicable [facility] physicians, as well as creation of the medical record Home Medications: Ambulatory Orders Triamterene-Hctz 37.5-25Mg [Dyazide 37.5-25 Capsule] 1 cap PO DAILY 09/09/19 HYDROcodone/APAP 7.5-325MG [[place] 7.5] 1 each PO Q6HR PRN #21 tab 04/13/20 Controlled Substance Measures - Controlled Substance Measures Is patient prescribed a controlled substance at discharge?: No
== END ==
LOC: PNWHC3 12:54
PROVIDERS: ATTEND Specialist
DX: M51.26 Other intervertebral disc displacement, lumbar region (principal); M19.90 Unspecified osteoarthritis, unspecified site; I10 Essential (primary) hypertension; Z79.899 Other long term (current) drug therapy
CPT/HCPCS: 99211

== ENCOUNTER → 2023-09-25 | Outpatient (CLI) | payer MEDICARE ==
[2023-09-25 13:00] VITALS: BP 147/76; PULSE 60; RESP 16
--- NOTE | 2023-09-25 14:20 | P.PAINPG ---
PQRS Measure Charge Sheet Comment: HISTORY OF PRESENT ILLNESS: A 68 yr old male w at side presents today w severe and chronic LBP secondary to DDD, spondylosis and facet arthropathy without myelopathy for evaluation s/p R T10- L2 TPIs. Pt states he experienced 75% pain relief x 9 mo s/p procedure. Pt states pain level is provoked at 10/10 in intensity, constant, predominantly axial, localized in the R mid back, sharp in character without shooting pain. Pain is provoked by over activity. Pain is alleviated by PT x 4 wks in Mar 2022, physician guided home exercises daily since Mar 2022, massage therapy in 2020, acupuncture treatments on & off, chiropractic treatments semi weekly for years, heat, ice, medications, topical, repositioning and rest. Oswestry pain score at 14. Interventional procedures include R TPIs T10-L2 x1 (Sep 2022) Medications include Robaxin, Mobic, Advil REVIEW OF ORGAN SYSTEMS: CONSTITUTIONAL: No fevers or chills. No recent weight loss. NEUROLOGICAL: + numbness and tingling along the distal extremities. No seizure disorders or headaches. MUSCULOSKELETAL: + pain PSYCHIATRIC: Denies current depression or suicidal thoughts. Physical Examinations : Constitutional : Cooperative , not in acute distress . Neurologic : Cranial nerve II to XII intact. No focal neurological deficits. Psychiatric : alert & oriented x 3. Matching mood & appropriate affect. Judgment & insight intact. Musculoskeletal : Cervical Spine Motor strength in the deltoid and biceps: Normal right side. Normal Left side Motor strength biceps and the wrist extensors: Normal right side . Normal left side Motor strength in the triceps muscle: Normal right side. Normal left side Deep tendon reflexes: Normal at the biceps. Normal at Brachioradialis. Normal at triceps Vertebral body tenderness to deep palpation over Cervical facet loading test: positive bilaterally Spurling test: positive bilaterally Neck distraction test: positive bilaterally Salvador sign: positive bilaterally Lumbar spine Motor strength lower extremities ,thigh and legs 5/5 Right side , 5/5 Left side Deep tendon reflexes : Normal Knee Jerk. Normal Ankle Jerk Vertebral body tenderness over Elizabeth Test positive Taut bands w twitch response over R T10 - L4 Lumbar facet Loading Test: positive Right / positive Left Range of motion of the lumbar spine Flexion 30 degrees, extension 10 degrees Straight Leg Raise test: Left/ Right positive at degree Jovanny test: positive right / positive left. Severe tenderness over the Sacroiliac joint on the Right / Left sides Gaenslen test: positive bilaterally Seated flexion test: positive bilaterally. Sacral spine : Severe tenderness over the Sacroiliac joint: right side / left side Range of motion: Flexion of the lumbar spine <60 degrees Range of motion: Extension of the lumbar spine <20 degrees Gaenslen's Test positive Herbie's Test positive Jovanny test: positive right side / left side Thigh Thrust Test Sacral Thrust Test Imaging: MRI noncontrast of the lumbar spine from 04/30/22 reviewed Assessment/ Plan : Lumbar DDD Recommendation of R TPIs T10-L4 #2. May need a series of injections for optimal pain relief. Risks, benefits of procedure discussed and patient verbalized understanding. Admits to aspirin or anti- coagulant use or medical history of diabetes. Protocol for discontinuation/ continuation of medications kimberly procedure discussed. All questions answered. I have spent greater than 30 minutes on patient care today. Dr Cabrera was available by phone for the evaluation of this patient. The time was used to review the medical records including relevant urine studies and Prescription history (MAPs), review of the available imaging, evaluation and examination of the patient, coordination of care with the medical staff and if applicable referring physicians, as well as creation of the medical record PQRS Narrative: Hx Alcohol Use (MH) No Home Medications: Ambulatory Orders Triamterene-Hctz 37.5-25Mg [Dyazide 37.5-25 Capsule] 1 cap PO DAILY 09/09/19 Celecoxib [CeleBREX] 200 mg PO DAILY PRN 10/22/22 diazePAM [Valium] 5 mg PO DAILY PRN 1 Days #2 tab 09/25/23 Controlled Substance Measures - Controlled Substance Measures Is patient prescribed a controlled substance at discharge?: Yes When asked, does pt state using other controlled substances?: Yes If prescribed controlled substance>3 days was MAPS reviewed?: Prescribed <3 Days
== END ==
LOC: PNWHC3 10:56
PROVIDERS: ATTEND Specialist
DX: M51.36 Other intervertebral disc degeneration, lumbar region (principal)
CPT/HCPCS: 99211

== ENCOUNTER 2023-10-02 06:08 | Day surgery (SDC) | payer MEDICARE ==
[~2023-10-02 06:08] MED LIST changes: -HYDROmorphone 0.5 MG/0.5 ML SYRINGE IVP PRN; -ONDANSETRON 4 MG/2 ML VIAL IVP ONE; -fentaNYL (PF) 50 MCG/ML 2 ML AMP IV PRN
[2023-10-02 06:39] VITALS: RESP 16; TEMP 97.2
[2023-10-02] MEDS ORDERED: ROPIVACAINE 5MG/ML 20ML VIAL ONE (07:00)
[2023-10-02] MEDS ORDERED: methylPREDNISolone ACETATE 40 MG/ML 1 ML VIAL ONE (07:00)
--- NOTE | 2023-10-02 07:16 | P.PCN ---
Description of Procedure: Preprocedure diagnosis. Myofascial pain. Myofascial trigger point. Postprocedure diagnosis. As above. Procedure done. Myofascial trigger point injection with local anesthetics and steroid at 4 points. Anesthesia. Local anesthetic infiltration. In the OR continuous pulse ox, EKG, blood pressure, and verbal communication was maintained with the patient. Blood loss. None. Indication. Discussed with the patient procedure, alternatives and possible complications which may include infection, bleeding, nerve damage, aggravation of pain. Patient understands and all questions were answered. Procedure note. After getting consent patient in the procedure area. Most tender points were identified and marked. A 25-gauge needle attached to syringe was introduced at the trigger points and after negative aspiration 5 mL solution are injected at each trigger point. I injected 4 trigger points in right Thoracolumber paraspinal muscles T11,T12,L1,L2 levels Total solution consists of 19 ml 0.5%Ropivacaine mixed with 40 mg Depomedrol. Disposition. Patient tolerated the procedure well. No complication. Discharged home in stable condition.
[2023-10-02 07:29] VITALS: BP 130/83; PULSE 51
== END 2023-10-02 07:30 | disposition home or self-care (01) ==
LOC: ORPAIN 06:08
PROVIDERS: ATTEND Pain Medicine Interventional Pain Medicine
DX: M79.18 Myalgia, other site (principal); Z79.1 Long term (current) use of non-steroidal anti-inflammatories (NSAID)
CPT/HCPCS: 20553; J2795; J1010